=== PATIENT | female | born 1965 | race American Indian/Alaskan Native ===

== ENCOUNTER 2017-04-21 11:23 | Emergency (ER) | payer OTHER ==
[2017-04-21 11:33] VITALS: BP 180/90; PULSE 55; RESP 20; TEMP 97.9; O2SAT 97
--- NOTE | 2017-04-21 12:20 | C.PDOC ---
History Of Present Illness 52 yo female c/o vaginal discharge x 3 days and itching for 9 days. No abdominal pain. No n/v. No fever. Denies being sexual active and does not want to be tested for STDs. Last pap smear- 05/2016. Information translated by chris. Chief Complaint (Nursing): Female Genitourinary History Per: Patient, Family History/Exam Limitations: language barrier Onset/Duration Of Symptoms: Days (9) Current Symptoms Are (Timing): Still Present Quality Of Discomfort: Burning, "Pain" Associated Symptoms: denies: Fever, Chills, Nausea, Vomiting, Back Pain, Urinary Symptoms Alleviating Factors: None Recent travel outside of the [place]: No Additional History Per: Patient, Family Abnormal Vaginal Bleeding: No Past Medical History Reviewed: Historical Data, Nursing Documentation, Vital Signs Vital Signs: Last Vital Signs Temp 97.9 F 04/21/17 11:32 Pulse 55 L 04/21/17 11:32 Resp 20 04/21/17 11:32 BP 180/90 H 04/21/17 11:32 Pulse Ox 97 04/21/17 13:09 - Medical History PMH: Diabetes (no medication for last 3 months), HTN Family History: States: Unknown Family Hx - Social History Hx Alcohol Use: No Hx Substance Use: No - Immunization History Hx Tetanus Toxoid Vaccination: No Hx Influenza Vaccination: No Hx Pneumococcal Vaccination: No Review Of Systems Except As Marked, All Systems Reviewed And Found Negative. Constitutional: Negative for: Fever, Chills Gastrointestinal: Negative for: Nausea, Vomiting, Abdominal Pain Genitourinary: Positive for: Vaginal Discharge (vaginal discharge and itching). Negative for: Dysuria, Frequency, Hematuria, Vaginal Bleeding, Pelvic Pain, Rash Musculoskeletal: Negative for: Back Pain Physical Exam - Physical Exam Appears: Non-toxic, No Acute Distress Skin: Normal Color, Warm, Dry Head: Atraumatic, Normacephalic Eye(s): bilateral: Normal Inspection, EOMI Nose: Normal Oral Mucosa: Moist Neck: Normal ROM, Supple Gastrointestinal/Abdominal: Soft, No Tenderness Pelvic: No Normal External Exam (mild labia swelling, white discharge, and scratches notes), No Vaginal Bleeding, Vaginal Discharge ((+) thick white discharge), No Cervical Motion Tenderness Extremity: Normal ROM Neurological/Psych: Oriented x3, Normal Speech ED Course And Treatment O2 Sat by Pulse Oximetry: 97 (RA) Pulse Ox Interpretation: Normal Progress Note: Diflucan ordered. glucose noted to be in urine. FS ordered. Pt notes she did not take her medication today bc she did not eat. Checks her sugar every few days - glucose usually around 200s. Discussed with pt importance of diabetic control and risks of infections with hyperglycemia. 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 Pt was instructed to follow up with [facility]ENDENT in 3-5 days to ensure resolution. Instructed to return to ER if symptoms persist or worsen. Disposition - Disposition Referrals: Kale Acuña MD [Staff Provider] - Disposition: HOME/ ROUTINE Disposition Time: 13:07 Condition: STABLE Additional Instructions: Follow up with your primary medical doctor or clinic in 2-5 days for further evaluation. Take medications as prescribed. Return to the emergency department at any time if symptoms persist or worsen. Prescriptions: Miconazole [Miconazole 7] 100 mg VG HS #7 sup Instructions: Vulvovaginal Candidiasis (ED) Forms: [employer] (Georgian) - Clinical Impression Clinical Impression: Vulvovaginal candidiasis - PA / [employer] F[employer]ER / Resident Statement MD/DO has reviewed & agrees with the documentation as recorded. - Scribe Statement The provider has reviewed the documentation as recorded by the Charlotteibkristofer Bedoya All medical record entries made by the Adelita were at my direction and personally dictated by me. I have reviewed the chart and agree that the record accurately reflects my personal performance of the history, physical exam, medical decision making, and the department course for this patient. I have also personally directed, reviewed, and agree with the discharge instructions and disposition.
[2017-04-21 12:34] LABS: HCG,QUALITATIVE URINE NEGATIVE (NEGATIVE)
[2017-04-21 12:47] LABS: SQUAMOUS EPITHIAL 2 /hpf (0-5); URINE BILIRUBIN NEGATIVE (NEGATIVE); URINE BLOOD 1+ (NEGATIVE); URINE CLARITY Clear (Clear); URINE COLOR Straw (YELLOW); URINE GLUCOSE (UA) 3+ mg/dL (Normal); URINE LEUKOCYTE ESTERASE NEG Leu/uL (Negative); URINE NITRATE NEGATIVE (NEGATIVE); URINE PROTEIN NEGATIVE (NEGATIVE); URINE UROBILINOGEN NORMAL mg/dL (0.2-1.0)
== END 2017-04-21 13:14 | disposition home or self-care (01) ==
LOC: C.ER 11:23
DX: B37.3 Candidiasis of vulva and vagina (principal)

== ENCOUNTER 2017-12-03 11:17 | Emergency (ER) | payer OTHER ==
[2017-12-03 11:47] VITALS: TEMP 98.2; O2SAT 98
--- NOTE | 2017-12-03 11:54 | C.PDOC ---
History Of Present Illness 52 y/o female presents to the ER complaining of headache, neck pain, and upper back pain which began after she slipped and fell on snow 6 days ago. Patient denies hx of blood thinners. Denies any other complaints. - HPI Time Seen by Provider: 12/03/17 11:30 Chief Complaint (Nursing): Trauma History Per: Patient History/Exam Limitations: no limitations Onset/Duration Of Symptoms: Days Severity: Moderate Past Medical History Reviewed: Historical Data, Nursing Documentation, Vital Signs Vital Signs: Last Vital Signs Temp 98.2 F 12/03/17 11:45 Pulse 69 12/03/17 14:01 Resp 20 12/03/17 14:01 BP 148/81 12/03/17 14:01 Pulse Ox 98 12/03/17 14:03 - Medical History PMH: Diabetes (no medication for last 3 months), HTN Surgical History: No Surg Hx Family History: States: No Known Family Hx - Social History Hx Alcohol Use: No Hx Substance Use: No - Immunization History Hx Tetanus Toxoid Vaccination: No Hx Influenza Vaccination: No Hx Pneumococcal Vaccination: No Review Of Systems Except As Marked, All Systems Reviewed And Found Negative. Musculoskeletal: Positive for: Neck Pain, Back Pain Neurological: Positive for: Headache. Negative for: Weakness, Numbness Physical Exam - Physical Exam Appears: Non-toxic, No Acute Distress Skin: Normal Color, Warm Head: Atraumatic, Normacephalic Eye(s): bilateral: Normal Inspection Nose: Normal Oral Mucosa: Moist Neck: Paracervical Tenderness Chest: Symmetrical Cardiovascular: Rhythm Regular Respiratory: Normal Breath Sounds, No Accessory Muscle Use, No Rales, No Rhonchi , No Wheezing Back: Paraspinal Tenderness (parathoracic tenderness) Extremity: Normal ROM Neurological/Psych: Oriented x3, Normal Speech, Normal Motor, Normal Sensation ED Course And Treatment O2 Sat by Pulse Oximetry: 98 Medical Decision Making Medical Decision Making: Plan: --Tylenol PO --CXR -- CT-Head --CT-Cervical Spine --X-Ray -Dorsal( Thoracic) Spine imaging neg pain improved. info obtained via creative developer. advise outpt fu and return precautions Disposition - Disposition Referrals: [facility] [Outside] [facility] [Outside] [facility] [Outside] Disposition: HOME/ ROUTINE Disposition Time: 13:58 Condition: STABLE Additional Instructions: please follow up with your doctor/clinic, return to er with worsening symptoms or cockers. Prescriptions: Naproxen [Naprosyn] 500 mg PO BID PRN #14 tablet PRN Reason: Pain, Mild (1-3) Instructions: Neck Pain, Closed Head Injury, Upper Back Pain Forms: [employer] (Georgian) - Clinical Impression Clinical Impression: Back pain, Head injury - Scribe Statement The provider has reviewed the documentation as recorded by the Adelita Gaona Provider Attestation: All medical record entries made by the Adelita were at my direction and personally dictated by me. I have reviewed the chart and agree that the record accurately reflects my personal performance of the history, physical exam, medical decision making, and the department course for this patient. I have also personally directed, reviewed, and agree with the discharge instructions and disposition.
--- NOTE | 2017-12-03 12:14 | RAD ---
HISTORY: trauma COMPARISON: None available. TECHNIQUE: Chest PA and lateral FINDINGS: LUNGS: No focal consolidation. Please note that chest x-ray has limited sensitivity for the detection of pulmonary masses. PLEURA: No significant pleural effusion identified. No definite pneumothorax . CARDIOVASCULAR: Heart size appears within normal limits. OSSEOUS STRUCTURES: Degenerative changes of the spine. VISUALIZED UPPER ABDOMEN: Unremarkable. OTHER FINDINGS: None. IMPRESSION: No focal consolidation, significant pleural effusion, or definite pneumothorax identified.
--- NOTE | 2017-12-03 12:16 | RAD ---
HISTORY: trauma COMPARISON: None available. FINDINGS: BONES: Alignment maintained. No acute displaced fracture identified. Degenerative changes including prominent anterior osteophyte formation of the mid to lower thoracic spine. DISC SPACES: Normal. SOFT TISSUES: Normal. OTHER FINDINGS: None. IMPRESSION: No acute displaced fracture identified.
--- NOTE | 2017-12-03 13:46 | CT ---
PROCEDURE: CT HEAD WITHOUT CONTRAST. HISTORY: trauma COMPARISON: None available. TECHNIQUE: Axial computed tomography images were obtained through the head/brain without intravenous contrast. Radiation dose: Total exam DLP = 851.47 mGy-cm. This CT exam was performed using one or more of the following dose reduction techniques: Automated exposure control, adjustment of the mA and/or kV according to patient size, and/or use of iterative reconstruction technique. FINDINGS: HEMORRHAGE: No intracranial hemorrhage. BRAIN: Trace periventricular white matter lucency is appreciated, particularly at the bilateral frontal horns, suggesting chronic microangiopathy. Overall brain parenchyma is otherwise unremarkable with good corticomedullary differentiation appreciated throughout. Posterior fossa contents unremarkable as well as midline brain anatomy. There is no extra-axial fluid collection identified and there is no mass-effect. VENTRICLES: Unremarkable. No hydrocephalus. CALVARIUM: No destructive bony lesion or displaced fracture identified including through the skullbase. PARANASAL SINUSES: Unremarkable as visualized. No significant inflammatory changes. MASTOID AIR CELLS: Unremarkable as visualized. No inflammatory changes. OTHER FINDINGS: None. IMPRESSION: Trace likely chronic microangiopathy. No intra hemorrhage, mass effect or cortical edema. No hydrocephalus. No fracture of the calvarium or skullbase identified.
--- NOTE | 2017-12-03 13:53 | CT ---
PROCEDURE: CT Cervical Spine without contrast HISTORY: <trauma> COMPARISON: None available. TECHNIQUE: Axial computed tomography images were obtained of the cervical spine without the use of intravenous contrast. Coronal and sagittal reformatted images were created and reviewed. Radiation dose: Total exam DLP = 498.34 mGy-cm. This CT exam was performed using one or more of the following dose reduction techniques: Automated exposure control, adjustment of the mA and/or kV according to patient size, and/or use of iterative reconstruction technique. FINDINGS: VERTEBRAE: There straightening the cervical curvature without fracture or spondylolisthesis identified. No destructive bony lesion is identified although a nonaggressive lucency is appreciated at the anterolateral C5 vertebral body somewhat toward the left. C1-2 articulation appears intact as well as the craniocervical junction. Multilevel spondylosis appears [id number] severity and predominate affects the mid to inferior cervical spine anteriorly only. No prominent posterior spondylosis. Prevertebral and paraspinal soft tissues appear remarkable only for a few punctate lymphoid calcification in the bilateral tonsillar pillars inferiorly. DISCS/SPINAL CANAL/NEURAL FORAMINA: No significant central canal or neural foraminal stenosis. Discs heights are grossly preserved. PARASPINAL SOFT TISSUES: Unremarkable. OTHER FINDINGS: None. IMPRESSION: Straightened cervical curvature without significant bony stenosis of the central canal or neural foramina. Limited anterior spondylosis appreciated at multiple levels only at predominantly at the mid and inferior cervical spine. No fracture identified.
[2017-12-03 14:01] VITALS: BP 148/81; PULSE 69; RESP 20
== END 2017-12-03 14:09 | disposition home or self-care (01) ==
LOC: C.ER 11:17
DX: S09.90XA Unspecified injury of head, initial encounter (principal); W00.0XXA Fall on same level due to ice and snow, initial encounter; M54.9 Dorsalgia, unspecified; E11.9 Type 2 diabetes mellitus without complications; I10 Essential (primary) hypertension